=== PATIENT | male | born 2000 | race Caucasian/White ===

== ENCOUNTER → 2025-08-10 | Emergency (ER) | payer OTHER ==
[~2025-08-10] VITALS: Ht 167.6 cm; Wt 72.7 kg
[2025-08-10 19:17] VITALS: BP 120/70; PULSE 76; RESP 16; TEMP 99; O2SAT 98
[2025-08-10] MEDS: PERTUSS(ACELL),DIPH,TET/PF 0.5 ML SYRINGE [ADULT] IM. ONE (20:28)
[2025-08-10] MEDS: SULFAMETHOX/TRIMETH DS 800-160 MG/TABLET PO ONE (20:30)
[2025-08-10] MEDS: CEPHALEXIN MONOHYDRATE 500 MG CAPSULE PO ONE (20:31)
== END | disposition still patient (30) ==
LOC: EMS 18:59
DX: S60.511A Abrasion of right hand, initial encounter (principal); X58.XXXA Exposure to other specified factors, initial encounter; Y93.G3 Activity, cooking and baking; Y92.89 Other specified places as the place of occurrence of the external cause; Y99.8 Other external cause status
CPT/HCPCS: 99284; 73130-TC; Z7502